=== PATIENT | male | born 1950 ===

== ENCOUNTER 2016-09-03 06:38 | Day surgery (SDC) | payer OTHER ==
[2016-08-31 18:03] VITALS: BMI 35.7
[~2016-09-03 06:38] MED LIST: CHONDROITIN SU A/HYALUR SOD 1 KIT IO ONE; TETRACAINE 0.5% OPHTH SOLN 2 ML BOTTLE TP ONE; TOBRA 0.3%/DEXAMETH 0.1% OPHTHALMIC SUSP 2.5 ML BTL OD ONE
[2016-09-03 07:07] VITALS: TEMP 98
[2016-09-03] MEDS: FLURBIPROFEN 0.03% OPHTH SOLN 2.5 ML BOTTLE ONE ×3 (07:20→07:34)
[2016-09-03] MEDS ORDERED: EPINEPHrine/PF 1 MG/1 ML (1:1,000) AMPULE ONE (07:20)
[2016-09-03] MEDS ORDERED: POVIDONE-IODINE 5% OPHTHALMIC PREP 30 ML SOLUTION ONE (07:20)
[2016-09-03] MEDS ORDERED: LIDOCAINE HCL/PF 1% SDV 5ML VIAL ONE (07:20)
[2016-09-03] MEDS ORDERED: TOBRA 0.3%/DEXAMETH 0.1% OPHTHALMIC SUSP 2.5 ML BTL ONE (07:20)
[2016-09-03] MEDS: MOXIFLOXACIN HCL 0.5% OPHTHALMIC 3 ML BOTTLE ONE ×3 (07:20→07:34)
[2016-09-03] MEDS: PHENYLEPHRINE 2.5% OPHTH SOLN 15 ML BOTTLE ONE ×3 (07:20→07:34)
[2016-09-03] MEDS ORDERED: TETRACAINE 0.5% OPHTH SOLN 2 ML BOTTLE ONE (07:20)
[2016-09-03] MEDS: CYCLOPENTOLATE HCL 1% OPHTH SOLN 2 ML BOTTLE ONE ×3 (07:20→07:33)
[2016-09-03] MEDS: TROPICAMIDE 1% OPHTH SOLN 15 ML BOTTLE ONE ×3 (07:20→07:34)
[2016-09-03] MEDS ORDERED: MIDAZOLAM HCL 2 MG/2 ML SINGLE DOSE VIAL ONE (07:59)
[2016-09-03] MEDS ORDERED: TETRACAINE 0.5% OPHTH SOLN 2 ML BOTTLE TP ONE (08:17)
[2016-09-03] MEDS ORDERED: POVIDONE-IODINE 5% OPHTHALMIC PREP 30 ML SOLUTION OD ONE (08:20)
[2016-09-03] MEDS ORDERED: BSS (NA/CA/MG/K) BALANCED SALT SOLUTION OPHTH SOLN 15 ML BOTTLE OD ONE (08:33)
[2016-09-03] MEDS ORDERED: LIDOCAINE HCL 1% PRESERVATIVE FREE - 30ML VIAL IO ONE (08:33)
[2016-09-03] MEDS ORDERED: CHONDROITIN SU A/HYALUR SOD 1 KIT IO ONE (08:33)
[2016-09-03] MEDS ORDERED: EPINEPHrine/PF 1 MG/1 ML (1:1,000) AMPULE SQ ONE (08:45)
[2016-09-03] MEDS ORDERED: PHENYLEPHRINE/KETOROLAC 4 ML VIAL IO ONE ×2 (09:00→09:07)
[2016-09-03] MEDS ORDERED: ACETYLCHOLINE 1:100 INTRA-OCUL 20 MG/2 ML KIT ONE (09:44)
[2016-09-03] MEDS ORDERED: ACETYLCHOLINE 1:100 INTRA-OCUL 20 MG/2 ML KIT IO ONE (09:46)
[2016-09-03] MEDS ORDERED: TOBRA 0.3%/DEXAMETH 0.1% OPHTHALMIC SUSP 2.5 ML BTL OD ONE (09:48)
[2016-09-03 13:04] VITALS: BP 130/70; PULSE 68
--- NOTE | 2016-09-03 19:53 | OP ---
DATE OF OPERATION: 09/03/2016 SURGEON: Dori Thomas M.D. PREOPERATIVE DIAGNOSIS: Cataract, right eye. POSTOPERATIVE DIAGNOSIS: Cataract, right eye. PROCEDURE: Phacoemulsification of cataract right eye with in bag placement of SN60WF 26.5 diopter induction of labor using and IV Diamox and Miochol. ANESTHESIA: Local. PROCEDURE: The patient was brought to the operating room, and the right eye was prepped and draped in the usual sterile fashion for ophthalmic surgery after placing the tetracaine eye drops. The microscope was swung into position and a 2.75 keratome was used to enter the anterior chamber at approximately 10 o'clock position, and preservative-free lidocaine was used 0.5 mL inside the anterior chamber. At this point there was prolapse of the iris to the wound which was then tamponaded using the Viscoat and accessory port was made at approximately 2 o'clock using the super sharp blade. At the time, the iris was not staying inside the anterior chamber with constant prolapse from the limbal wound, so IV Diamox was administered 500 mg and after controlling the prolapse of the iris, capsulorrhexis was performed using cystotome and Utrata forceps. Hydrodissection, hydrodelineation was then performed with rotation of the lens nucleus. At this stage again there was constant prolapse of the iris and so was used in the back for infusion. Phacoemulsification was carried out in a [id number] technique. The IA was used to remove residual cortical material from the capsular bag. The bag was found to be intact and 26.5 diopter IOL was injected into the bag and dialed into position using the Sinskey hook. IA was used to remove residual viscoelastic from the capsular bag and anterior chamber. BSS was used to perform hydration of the corneal lip wound, and Miochol was used to keep the pupil constricted to avoid prolapse of the iris from the corneal limbal wound. The wound was then found to be watertight. A contact lens soaked in Tobradex solution for approximately 10 minutes was then draped in the cornea. The eye was patched and shielded and patient was transferred to the recovery room in a stable condition having tolerated the procedure well. DORI THOMAS M.D. /[id number]
== END 2016-09-03 11:40 | disposition home or self-care (01) ==
LOC: JASU-SURG 06:38
PROVIDERS: ATTEND Ophthalmology
PROC: 08RK3JZ Replacement of Left Lens with Synthetic Substitute, Percutaneous Approach (ICD-10-PCS; principal; 2016-09-03 08:00)
DX: H26.9 Unspecified cataract (principal); H21.89 Other specified disorders of iris and ciliary body
CPT/HCPCS: C9447